=== PATIENT | female | born 1985 | race African-American/Black ===

== ENCOUNTER 2017-08-13 09:31 | Emergency (ER) | payer MEDICAID ==
[~2017-08-13] VITALS: Ht 170.2 cm; Wt 80.3 kg
[~2017-08-13 09:31] MED LIST: ACET-1635 PO
[2017-08-13 09:38] VITALS: BP 160/101
--- NOTE | 2017-08-13 09:40 | NUR ---
Pt taken to bed 1.
[2017-08-13 11:04] LABS: BASOPHILS # (AUTO) 0.2 K/uL (0.00-0.22); BASOPHILS % (AUTO) 1.5 % (0.0-2.0); EOSINOPHILS % (AUTO) 0.2 % (0.0-4.0); HEMATOCRIT 44.1 % (36-48); HEMOGLOBIN 14.8 g/dL (12.0-16.0); LYMPHOCYTES # (AUTO) 1.9 K/uL (2.5-16.5); LYMPHOCYTES % (AUTO) 16.2 % (20.5-51.1); MEAN CORPUSCULAR HEMOGLOBIN 29 pg (27-31); MEAN CORPUSCULAR HGB CONC 33 g/dL (33-37); MEAN CORPUSCULAR VOLUME 87 fL (80-94); MONOCYTES # (AUTO) 0.7 K/uL (0.8-1.0); MONOCYTES % (AUTO) 5.7 % (1.7-9.3); NEUTROPHILS # (AUTO) 9.1 K/uL (1.8-7.7); NEUTROPHILS % (AUTO) 76.4 % (42.2-75.2); PLATELET COUNT (AUTO) 264 K/uL (140-450); RED BLOOD CELL COUNT(AUTO) 5.05 MIL/uL (4.20-5.40); RED CELL DISTRIBUTION WIDTH 13.9 % (11.6-13.7); WHITE BLOOD COUNT (AUTO) 11.9 K/uL (4.8-10.8)
[2017-08-13 11:07] LABS: BILIRUBIN,URINE NEGATIVE (NEGATIVE); BLOOD, URINE NEGATIVE (NEGATIVE); LEUKOCYTE ESTERASE ,URINE NEGATIVE (NEGATIVE); NITRITE, URINE NEGATIVE (NEGATIVE); PH,URINE 6.5 (5.0-9.0); UGLUCOSE NEGATIVE (NEGATIVE)
[2017-08-13 11:27] LABS: ALBUMIN 4.4 g/dL (3.4-5.0); ANION GAP 14.3 (8-16); CARBON DIOXIDE 29.2 mmol/L (21-32); CREATININE 0.9 mg/dL (0.6-1.3); POTASSIUM 3.5 mmol/L (3.5-5.1); TOTAL BILIRUBIN 0.3 mg/dL (0.0-1.0)
--- NOTE | 2017-08-13 11:27 | NUR ---
patient brought in by private vehicle for c/o fatigue x 1 week. patient is alert and oriented x 4. respirations are even unlabored. observed patient conversing and laughing with friend at bedside. patient c/o intermittment episodes of numbness and tingling to bilateral lower extermites and feels cold. currently denies any symptoms of dizziness, numbness, tingling, n/v/d. patient is calm an cooperative at this time. patients in no acute distress at this time. awaiting pending results.
[2017-08-13 11:48] LABS: APPEARANCE,URINE SLIGHTLY HAZY (CLEAR); COLOR,URINE STRAW (YELLOW)
[2017-08-13 11:51] LABS: RBC,URINE NONE SEEN /HPF (0-5); WBC,URINE 0-5 (RARE) /HPF (0-5)
--- NOTE | 2017-08-13 11:52 | NUR ---
Patient appears to be resting comfortably in bed. VSS. Friend at bedside. Water provided. Updated on status for pending lab results.
[2017-08-13 13:09] VITALS: BP 161/107
--- NOTE | 2017-08-13 13:30 | NUR ---
Patient discharged per MD's orders. BP= 161/107. Patient is asymptomatic. Notified of elevated bp with no new orders. Advised patient to follow up with her primary physician for further treatment. Written and verbal after care instructions given and explained. Patient verbalized understanding. Ambulatory with steady gait. All questions addressed prior to discharge. Advised to follow up with PMD.
== END 2017-08-13 13:30 | disposition home or self-care (01) ==
LOC: MED 09:31
DX: D72.829 Elevated white blood cell count, unspecified (principal); B34.9 Viral infection, unspecified; F41.9 Anxiety disorder, unspecified; I10 Essential (primary) hypertension; E11.9 Type 2 diabetes mellitus without complications
CPT/HCPCS: 36415; 80053; 81001; 81025; 82948; 83036; 85025; 99284